=== PATIENT | female | born 1995 | race Asian ===

== ENCOUNTER 2018-01-15 21:53 | Emergency (ER) | payer BC ==
[2018-01-16] MEDS: MORPHINE 2 MG/ML 1ML SYRINGE (J2270) IV ×2 (00:19→06:04)
[2018-01-16] MEDS: NS 1,000 ML IV (00:19)
[2018-01-16] MEDS: ONDANSETRON 4MG/2ML VIAL (J2405) IV ×2 (00:19→05:07)
[2018-01-16 00:24] LABS: BASO # 0.1 10^3/uL (0.0-0.2); BASO % 1.1 % (0.0-1.0); EOS # 2.7 10^3/uL (0.0-0.50); HEMATOCRIT 39.8 % (36.0-47.0); HEMOGLOBIN 13.2 g/dl (12.0-15.5); IMMATURE GRANULOCYTE % 0.2 % (0-3.0); LYMPH # 3.4 10^3/uL (1.5-6.5); LYMPH % 31.8 % (24.0-44.0); MEAN CORPUSCULAR HGB CONC 33.2 g/dl (32.0-36.5); MEAN CORPUSCULAR VOLUME 90.5 fl (80.0-96.0); MONO # 0.7 10^3/uL (0.0-0.8); MONO % 6.1 % (0.0-5.0); NEUTROPHILS # 3.8 10^3/uL (1.8-7.7); NEUTROPHILS % 35.7 % (36.0-66.0); PLATELET COUNT, AUTOMATED 258 10^3/uL (150-450); RED CELL DISTRIBUTION WIDTH 13.9 % (11.5-14.5); WHITE BLOOD COUNT 10.6 10^3/uL (4.0-10.0)
[2018-01-16 00:27] LABS: EOS % 25.1 % (0.0-3.0); POSITIVE DIFF POS FLAG
[2018-01-16 00:39] LABS: KETONE, URINE AUTO RFX NEGATIVE (NEGATIVE); LEUKOCYTE ESTERASE UR AUTO RFX NEGATIVE (NEGATIVE); NITRITE, URINE AUTO RFX NEGATIVE (NEGATIVE); RBC, URINE AUTO RFX 0 /HPF (0-3); SPECIFIC GRAVITY UR AUTO RFX 1.006 (1.002-1.035); SQUAM EPITHELIAL CELL UR AURFX 0 /HPF (0-6); WBC, URINE AUTO RFX 0 /HPF (0-3)
[2018-01-16] MEDS ORDERED: ISOVUE-370 76% 100ML VIAL (Q9967) As Ordered (01:42)
[2018-01-16 02:38] LABS: ALBUMIN 4.1 GM/DL (3.2-5.2); ALBUMIN/GLOBULIN RATIO 1.17 (1.00-1.93); ALKALINE PHOSPHATASE 51 U/L (45-117); ALT/SGPT 17 U/L (12-78); ANION GAP 3 MEQ/L (8-16); AST/SGOT 10 U/L (7-37); BILIRUBIN,DIRECT < 0.1 MG/DL (0.0-0.2); BILIRUBIN,TOTAL 0.3 MG/DL (0.2-1.0); BLOOD UREA NITROGEN 12 MG/DL (7-18); CARBON DIOXIDE LEVEL 30 MEQ/L (21-32); CHLORIDE LEVEL 107 MEQ/L (98-107); CREATININE FOR GFR 0.69 MG/DL (0.55-1.30); GLOMERULAR FILTRATION RATE > 60.0 (>60); GLUCOSE, FASTING 90 MG/DL (70-100); LIPASE 168 U/L (73-393); POTASSIUM SERUM 3.8 MEQ/L (3.5-5.1); SODIUM LEVEL 140 MEQ/L (136-145); TOTAL PROTEIN 7.6 GM/DL (6.4-8.2)
[2018-01-16 03:17] LABS: CONTROL LINE HCG INT CTR LINE PRESENT; HCG, SERUM QUALITATIVE NEGATIVE (NEGATIVE)
[2018-01-16] MEDS: OXYCODONE/APAP 5MG/325MG(BULK FOR ED) 1 TABLET PO (06:59)
== END 2018-01-16 07:11 | disposition home or self-care (01) ==
LOC: M ED 21:53
DX: N83.01 Follicular cyst of right ovary (principal); Z98.890 Other specified postprocedural states
CPT/HCPCS: J2405

== ENCOUNTER 2018-02-21 11:23 | Emergency (ER) | payer BC ==
[2018-02-21] MEDS: NS 1,000 ML IV (12:45)
[2018-02-21] MEDS: diphenhydrAMINE INJ 50MG/ML VIAL (J1200) IV (12:45)
[2018-02-21] MEDS: methylPREDNISolone INJ 125 MG/2 ML VIAL (J2930) IV (12:46)
[2018-02-21] MEDS: FAMOTIDINE INJ 20MG/2ML VIAL (S0028) IV (12:46)
== END 2018-02-21 14:20 | disposition home or self-care (01) ==
LOC: M ED 11:23
DX: L50.0 Allergic urticaria (principal); T36.95XA Adverse effect of unspecified systemic antibiotic, initial encounter; X58.XXXA Exposure to other specified factors, initial encounter; Y92.89 Other specified places as the place of occurrence of the external cause
CPT/HCPCS: J1200

== ENCOUNTER 2018-08-08 19:03 | Emergency (ER) | payer BC, OTHER ==
[~2018-08-08] VITALS: Ht 157.5 cm; Wt 65.9 kg
[~2018-08-08 19:03] MED LIST: AZIT500T2 PO; CEFD1CAP8 PO; DIPH50TA3 PO; FAMO40TA3 PO; PRED20TA; PRED20TA PO; ZOFR4TAB14 PO
[2018-08-08 19:32] LABS: BASO % 0.3 % (0.0-1.0); EOS # 0.3 10^3/uL (0.0-0.50); EOS % 3.9 % (0.0-3.0); HEMATOCRIT 42.2 % (36.0-47.0); HEMOGLOBIN 14.2 g/dl (12.0-15.5); LYMPH # 1.8 10^3/uL (1.5-6.5); LYMPH % 25.7 % (24.0-44.0); MEAN CORPUSCULAR HEMOGLOBIN 30.9 pg (27.0-33.0); MEAN CORPUSCULAR HGB CONC 33.6 g/dl (32.0-36.5); MEAN CORPUSCULAR VOLUME 91.7 fl (80.0-96.0); MONO # 0.5 10^3/uL (0.0-0.8); MONO % 7.6 % (0.0-5.0); NEUTROPHILS # 4.4 10^3/uL (1.8-7.7); NEUTROPHILS % 62.4 % (36.0-66.0); PLATELET COUNT, AUTOMATED 274 10^3/uL (150-450); WHITE BLOOD COUNT 7.1 10^3/uL (4.0-10.0)
[2018-08-08 20:28] LABS: BLOOD UREA NITROGEN 9 MG/DL (7-18); CALCIUM LEVEL 9.3 MG/DL (8.5-10.1); CARBON DIOXIDE LEVEL 30 MEQ/L (21-32); CHLORIDE LEVEL 102 MEQ/L (98-107); GLOMERULAR FILTRATION RATE > 60.0 (>60); GLUCOSE, FASTING 113 MG/DL (70-100); HCG, SERUM QUANTITATIVE 1022 MIU/ML; POTASSIUM SERUM 3.7 MEQ/L (3.5-5.1); SODIUM LEVEL 136 MEQ/L (136-145)
--- NOTE | 2018-08-08 20:43 | REPVR ---
EXAM: US First Trimester, Transabdominal and US , Transvaginal EXAM DATE/TIME: 08/08/2018 7:50 PM CLINICAL HISTORY: 22 years old, female; Pain; complicated by abdominal or pelvic pain; Upper; First trimester; Gestational age or lmp: 06/17/18; ; Additional info: Pain/cramping TECHNIQUE: Real-time transabdominal obstetrical ultrasound of the maternal pelvis and a first trimester , less than 14 weeks 0 days, with image documentation. Transvaginal imaging was used for better evaluation of the fetus and adnexa. COMPARISON: No relevant prior studies available. FINDINGS: GESTATION: Gestation: There is an intrauterine gestational sac. No evidence of yolk sac or pole . There is a tiny collection of echoes noted within the sac Placenta: Unremarkable. No subchorionic bleed. Abdomen: Transabdominally, the bladder is incompletely distended. This limits visualization of the pelvic structures. BIOMETRY: Mean sac diameter: The sac measures 0.4 x 0.3 x 0.26 cm for a mean sac diameter of 0.34 cm for a menstrual age of 5 weeks and 0 days. MATERNAL: Uterus: Transabdominally, the uterus measures at least 8 x 3.1 x 5.9 cm.. The endometrium stripe measures 9 mm. Endovaginally, the uterus measures 9 x 3.8 x 6.4 cm. Findings suggest bicornuate or arcuate uterus. Cervix: Unremarkable. Right adnexa: Transabdominally, the right ovary is not seen as a separate structure. Endovaginally, the right ovary measures 3.1 x 1.8 x 3.1 cm. A cyst with a few internal echoes noted in the right ovary measures 1.8 cm in greatest diameter. Blood flow is seen in the right ovary on color Doppler and pulsed Doppler examination. Left adnexa: Transabdominally, the left ovary is not seen as separate structure. Endovaginally, the left ovary is not seen as a separate structure. Intraperitoneal: Endovaginally, smaller free fluid seen in the posterior cul-de-sac. IMPRESSION: 1. Single intrauterine gestational sac. No pole or yolk sac seen. Serial beta hCG measurement and followup ultrasound might be considered to confirm the presence of a live . 2. Nonvisualization of the left ovary. No masses in the left adnexa. 3. Bicornuate or arcuate uterus. Electronically signed by: Dolly Morris On 08/08/2018 20:43:08 PM
[2018-08-08 21:20] VITALS: BP 135/84
== END 2018-08-08 21:31 | disposition home or self-care (01) ==
LOC: M ED 19:03
DX: O34.591 Maternal care for other abnormalities of gravid uterus, first trimester (principal); O26.891 Other specified pregnancy related conditions, first trimester; Z79.899 Other long term (current) drug therapy; Z88.1 Allergy status to other antibiotic agents

== ENCOUNTER → 2018-08-12 | Outpatient (CLI) | payer OTHER ==
[~2018-08-12] MED LIST changes: +PRENTAB45 PO
== END ==
LOC: M WUC 10:34
PROVIDERS: ATTEND Physician Assistant
DX: O26.891 Other specified pregnancy related conditions, first trimester (principal)

== ENCOUNTER 2018-08-21 09:39 | Day surgery (SDC) | payer OTHER ==
[~2018-08-21] VITALS: Ht 157.5 cm; Wt 67.2 kg
[~2018-08-21 09:39] MED LIST changes: -PRENTAB45 PO
[2018-08-21] MEDS ORDERED: PRENTAB45 PO (10:37)
[2018-08-21] MEDS ORDERED: LIDOCAINE 1% MDV 20ML VIAL As Ordered ONE (10:47)
[2018-08-21] MEDS ORDERED: DOXYCYCLINE HYCLATE 100 MG TAB As Ordered ONE (11:05)
[2018-08-21] MEDS ORDERED: ONDANSETRON 4MG/2ML VIAL (J2405) As Ordered ONE ×2 (11:22→12:42)
[2018-08-21] MEDS ORDERED: PROPOFOL 200 MG/20 ML VIAL As Ordered ONE (11:22)
[2018-08-21] MEDS ORDERED: KETOROLAC 60 MG/2 ML VIAL (J1885) As Ordered ONE (11:22)
[2018-08-21] MEDS ORDERED: fentaNYL 100 MCG/2 ML INJECTION (J3010) As Ordered ONE (11:22)
[2018-08-21] MEDS ORDERED: MIDAZOLAM INJ 2 MG/2 ML VIAL (J2250) As Ordered ONE (11:22)
[2018-08-21] MEDS ORDERED: LIDOCAINE 2% INJ 100 MG/5 ML SDV (FOR ANES.) As Ordered ONE (11:22)
[2018-08-21] MEDS ORDERED: SILVER NITRATE APPLICATOR As Ordered ONE (11:40)
[2018-08-21] MEDS ORDERED: DOXYCYCLINE HYCLATE 100 MG TAB PO ONE (12:00)
[2018-08-21] MEDS ORDERED: MORPHINE 4 MG/ML 1ML VIAL/SYRINGE (J2270) As Ordered ONE (12:27)
[2018-08-21] MEDS ORDERED: LR 1,000 ML IV SCH (12:45)
[2018-08-21] MEDS ORDERED: PERCOCET 5MG/325MG TAB PO PRN (12:45)
[2018-08-21] MEDS ORDERED: MORPHINE 10 MG/ML 1ML VIAL (J2270) IV ONE (12:45)
[2018-08-21] MEDS: ONDANSETRON 4MG/2ML VIAL (J2405) IV PRN (13:00)
[2018-08-21] MEDS ORDERED: ONDANSETRON 4MG/2ML VIAL (J2405) IV ONE (13:30)
[2018-08-21] MEDS ORDERED: MORPHINE 2 MG/ML 1ML SYRINGE (J2270) IV ONE (13:30)
[2018-08-21] MEDS ORDERED: IBUPROFEN 800 MG TAB As Ordered ONE (13:52)
[2018-08-21 14:30] VITALS: BP 121/73
[2018-08-21] MEDS ORDERED: IBUPROFEN 800 MG TAB PO ONE (15:00)
--- NOTE | 2018-08-22 13:14 | RO ---
DATE OF PROCEDURE: 08/21/2018 SURGEON: Raf La MD NUTRITION SERVICES AIDE: PREOPERATIVE DIAGNOSIS: Missed . POSTOPERATIVE DIAGNOSIS: Missed . ANESTHESIA: Monitored anesthesia care (MAC) with local paracervical block. ESTIMATED BLOOD LOSS: 50 mL. FLUIDS: 600 mL of lactated Ringer. PROCEDURE: Dilation and curettage. PREOPERATIVE ANTIBIOTICS: Doxycycline along with one dose of postoperative antibiotics 100 mg. SPECIMENS: Products of conception. FINDINGS: Axial [id number] uterus. INDICATIONS: The patient had quantitative hormone levels that were not compatible with normal and two scans that confirmed a missed (AB) done by Dr. Nur in the clinic. DESCRIPTION OF OPERATION: The patient was taken to the operating room with an IV in place, and MAC anesthesia was obtained. She was placed in the dorsal lithotomy position by me, and exam was performed. She was then prepped and draped in normal sterile fashion. Speculum was placed into the vagina, and the cervix was isolated. The anterior lip of the cervix was grasped with a tenaculum, and she was sequentially dilated enough to admit a 9-mm curved suction curette. This was placed to the fundus, attached to the suction device; and once green suction status was obtained with the suction device, gentle in-and-out and twisting maneuvers were used with the suction curette to remove the products of conception. This was repeated times three. She was then sharply curetted in the intrauterine cavity until a gritty texture was noted throughout in all four quadrants. Suction curette was replaced one more time, and no significant tissue or blood was noted at this point. Hemostasis was noted from the cervical os. A small amount of bleeding was noted from the tenaculum site at the anterior lip. Silver nitrate was used to obtain hemostasis. All in all, the procedure was uncomplicated and straightforward. All counts were correct. MTDD
== END 2018-08-21 14:45 | disposition home or self-care (01) ==
LOC: M SDC 09:39
PROVIDERS: ATTEND Obstetrics & Gynecology
DX: O02.1 Missed abortion (principal)
CPT/HCPCS: 59820; 88305; J1885; J2250; J2270; J2405; J3010

== ENCOUNTER 2018-10-03 09:34 | Emergency (ER) | payer OTHER ==
[~2018-10-03] VITALS: Ht 157.5 cm; Wt 65.9 kg
[~2018-10-03 09:34] MED LIST changes: +PRENTAB45 PO
[2018-10-03 10:14] LABS: BASO % 0.6 % (0.0-1.0); EOS # 0.2 10^3/uL (0.0-0.50); EOS % 3.5 % (0.0-3.0); LYMPH % 31.2 % (24.0-44.0); MEAN CORPUSCULAR HEMOGLOBIN 31.4 pg (27.0-33.0); MEAN CORPUSCULAR HGB CONC 34.1 g/dl (32.0-36.5); MEAN CORPUSCULAR VOLUME 92.1 fl (80.0-96.0); MONO # 0.3 10^3/uL (0.0-0.8); MONO % 5.4 % (0.0-5.0); NEUTROPHILS # 3.8 10^3/uL (1.8-7.7); PLATELET COUNT, AUTOMATED 256 10^3/uL (150-450); RED BLOOD COUNT 4.78 10^6/uL (4.00-5.40); WHITE BLOOD COUNT 6.4 10^3/uL (4.0-10.0)
[2018-10-03 10:36] LABS: ERYTHROCYTE SEDIMENTATION RATE 2 mm/hr (0-20)
--- NOTE | 2018-10-03 10:45 | REP ---
Clinical: Abdominopelvic pain with recent dilatation and curettage. Technique: Transabdominal pelvic ultrasound followed by transvaginal examination for better evaluation of the endometrium and adnexa with color Doppler evaluation of the ovaries. Findings: Bladder is unremarkable and measures 7.5 x 5.5 x 5.4 cm . Normal anteverted uterus measures 8.7 x 4.2 x 5.6 cm . The endometrial complex measures 7.9 mm thickness. No discrete uterine or endometrial abnormalities are appreciated. Bilateral ovaries are normal in appearance and vascularity without evidence for torsion. Right ovary measures 4.5 x 2.4 x 2.7 cm with 2.0 cm dominant follicle ; R I = 0.47 . Left ovary measures 2.6 x 1.3 x 1.8 cm ; R I = 0.45 . Trace free fluid noted in the cul-de-sac. No adnexal mass lesion identified. . Impression: 1. 2 cm dominant follicle in the right ovary. 2. Small amount of free fluid in the posterior cul-de-sac likely physiologic. 3. Otherwise normal pelvic ultrasound. Electronically Signed by Dedrick Campos MD 10/03/2018 10:36 A
[2018-10-03 10:47] LABS: BLOOD UREA NITROGEN 14 MG/DL (7-18); C REACTIVE PROTEIN QUANTITATIV < 0.30 MG/DL (0.00-0.30); CALCIUM LEVEL 8.8 MG/DL (8.5-10.1); CARBON DIOXIDE LEVEL 27 MEQ/L (21-32); CHLORIDE LEVEL 105 MEQ/L (98-107); CREATININE FOR GFR 0.65 MG/DL (0.55-1.30); GLOMERULAR FILTRATION RATE > 60.0 (>60); GLUCOSE, FASTING 100 MG/DL (70-100); HCG, SERUM QUANTITATIVE < 1.0 MIU/ML; SODIUM LEVEL 140 MEQ/L (136-145)
[2018-10-03] MEDS ORDERED: NS 1,000 ML IV ONE (11:15)
[2018-10-03] MEDS ORDERED: ACETAMINOPHEN TAB 650MG DOSE (2X325MG) PO ONE (12:15)
[2018-10-03 13:05] VITALS: BP 113/65
== END 2018-10-03 13:07 | disposition home or self-care (01) ==
LOC: M ED 09:34
DX: R10.2 Pelvic and perineal pain (principal); N83.01 Follicular cyst of right ovary; Z87.59 Personal history of other complications of pregnancy, childbirth and the puerperium; Z98.890 Other specified postprocedural states; Z88.1 Allergy status to other antibiotic agents

== ENCOUNTER → 2018-11-04 | Outpatient (CLI) | payer OTHER ==
--- NOTE | 2018-11-04 17:24 | REP ---
Clinical: Acute cough . Comparison: None . Technique: PA and lateral. Findings: The mediastinum and cardiac silhouette are normal. The lung walsh are clear and without acute consolidation, effusion, or pneumothorax. The skeletal structures are intact and normal. Impression: 1. No acute cardiopulmonary process. Electronically Signed by Dedrick Campos MD 11/04/2018 05:15 P
== END ==
LOC: M WUC 17:06
PROVIDERS: ATTEND Physician Assistant
DX: R05 Cough (principal)

== ENCOUNTER 2018-12-01 20:23 | Emergency (ER) | payer OTHER ==
[~2018-12-01] VITALS: Ht 157.5 cm; Wt 68.2 kg
[2018-12-01] MEDS ORDERED: ONDANSETRON 4 MG TAB (S0181) PO ONE (21:45)
[2018-12-01] MEDS ORDERED: MECLIZINE 25 MG TABLET PO ONE (21:45)
[2018-12-01 22:08] LABS: INFLUENZA A AMPLIFICATION NEGATIVE (NEGATIVE); INFLUENZA B AMPLIFICATION NEGATIVE (NEGATIVE)
--- NOTE | 2018-12-01 22:57 | REPVR ---
EXAM: CT Head Without Contrast EXAM DATE/TIME: 12/01/2018 10:20 PM CLINICAL HISTORY: 23 years old, female; Pain; Additional info: Dizziness one month TECHNIQUE: Imaging protocol: Axial computed tomography images of the head/brain without contrast. Radiation optimization: All CT scans at this facility use at least one of these dose optimization techniques: automated exposure control; mA and/or kV adjustment per patient size (includes targeted exams where dose is matched to clinical indication); or iterative reconstruction. COMPARISON: No relevant prior studies available. FINDINGS: Brain: Unremarkable. No hemorrhage. No significant white matter disease. No edema. Ventricles: Unremarkable. No ventriculomegaly. Bones/joints: Unremarkable. No acute fracture. Sinuses: Mild mucosal thickening of ethmoid sinuses. Mastoid air cells: Visualized mastoid air cells are unremarkable. No mastoid effusion. Soft tissues: Unremarkable. IMPRESSION: No intracranial abnormality. Electronically signed by: Eric Genao On 12/01/2018 22:56:42 PM
[2018-12-01] MEDS ORDERED: ZOFR8TAB24 PO (23:37)
[2018-12-01] MEDS ORDERED: MECL-68 PO (23:37)
[2018-12-01] MEDS ORDERED: ACETAMINOPHEN TAB 650MG DOSE (2X325MG) PO ONE (23:45)
[2018-12-01 23:48] VITALS: BP 117/63
== END 2018-12-01 23:49 | disposition home or self-care (01) ==
LOC: M ED 20:23
DX: H81.10 Benign paroxysmal vertigo, unspecified ear (principal); Z88.1 Allergy status to other antibiotic agents

== ENCOUNTER → 2018-12-09 | Outpatient (CLI) | payer OTHER ==
[~2018-12-09] MED LIST changes: +MECL-68 PO; +ZOFR8TAB24 PO
[2018-12-09 19:41] LABS: HCG, SERUM QUALITATIVE NEGATIVE (NEGATIVE)
== END ==
LOC: M WUC 15:33
PROVIDERS: ATTEND Physician Assistant
DX: N91.2 Amenorrhea, unspecified (principal)

== ENCOUNTER → 2019-01-16 | Outpatient (REF) | payer OTHER | LOC: M LAB REF 16:54 | PROVIDERS: ATTEND Physician Assistant | DX: N39.0 Urinary tract infection, site not specified (principal); N91.2 Amenorrhea, unspecified ==

== ENCOUNTER 2019-01-23 23:44 | Emergency (ER) | payer OTHER ==
[~2019-01-23] VITALS: Ht 157.5 cm; Wt 68.2 kg
[2019-01-23] MEDS ORDERED: METF500T13 PO (23:49)
[2019-01-24 00:34] LABS: BASO % 0.4 % (0.0-1.0); EOS # 0.6 10^3/uL (0.0-0.50); EOS % 5.7 % (0.0-3.0); HEMATOCRIT 41.1 % (36.0-47.0); HEMOGLOBIN 14.2 g/dl (12.0-15.5); LYMPH # 3.7 10^3/uL (1.5-6.5); LYMPH % 38.1 % (24.0-44.0); MEAN CORPUSCULAR HEMOGLOBIN 32.2 pg (27.0-33.0); MEAN CORPUSCULAR HGB CONC 34.5 g/dl (32.0-36.5); MEAN CORPUSCULAR VOLUME 93.2 fl (80.0-96.0); MONO # 0.5 10^3/uL (0.0-0.8); MONO % 5.5 % (0.0-5.0); NEUTROPHILS # 4.9 10^3/uL (1.8-7.7); PLATELET COUNT, AUTOMATED 279 10^3/uL (150-450); RED BLOOD COUNT 4.41 10^6/uL (4.00-5.40); WHITE BLOOD COUNT 9.8 10^3/uL (4.0-10.0)
[2019-01-24 01:31] VITALS: BP 134/80
== END 2019-01-24 01:34 | disposition home or self-care (01) ==
LOC: M ED 23:44
DX: R10.2 Pelvic and perineal pain (principal); R35.8 Other polyuria; R39.15 Urgency of urination; Z79.84 Long term (current) use of oral hypoglycemic drugs; Z88.1 Allergy status to other antibiotic agents

== ENCOUNTER 2019-03-13 20:37 | Emergency (ER) | payer OTHER ==
[~2019-03-13] VITALS: Ht 157.5 cm; Wt 70.0 kg
[~2019-03-13 20:37] MED LIST changes: -AZIT500T2 PO; +AZIT500T5 PO; -MECL-68 PO; +MECL1TAB31 PO; +METF500T13 PO
[2019-03-13 21:42] LABS: BASO % 0.3 % (0.0-1.0); EOS # 0.5 10^3/uL (0.0-0.50); EOS % 4.7 % (0.0-3.0); HEMATOCRIT 40.4 % (36.0-47.0); HEMOGLOBIN 13.8 g/dl (12.0-15.5); LYMPH % 30.3 % (24.0-44.0); MEAN CORPUSCULAR HEMOGLOBIN 31.2 pg (27.0-33.0); MEAN CORPUSCULAR HGB CONC 34.2 g/dl (32.0-36.5); MEAN CORPUSCULAR VOLUME 91.4 fl (80.0-96.0); MONO # 0.6 10^3/uL (0.0-0.8); NEUTROPHILS # 5.8 10^3/uL (1.8-7.7); NEUTROPHILS % 58.4 % (36.0-66.0); PLATELET COUNT, AUTOMATED 289 10^3/uL (150-450); RED BLOOD COUNT 4.42 10^6/uL (4.00-5.40)
[2019-03-13 22:07] LABS: ALT/SGPT 20 U/L (12-78); BILIRUBIN,TOTAL 0.2 MG/DL (0.2-1.0); BLOOD UREA NITROGEN 5 MG/DL (7-18); CALCIUM LEVEL 9.7 MG/DL (8.5-10.1); CARBON DIOXIDE LEVEL 28 MEQ/L (21-32); CHLORIDE LEVEL 104 MEQ/L (98-107); CREATININE FOR GFR 0.58 MG/DL (0.55-1.30); GLOMERULAR FILTRATION RATE > 60.0 (>60); GLUCOSE, FASTING 93 MG/DL (70-100); POTASSIUM SERUM 3.9 MEQ/L (3.5-5.1); SODIUM LEVEL 139 MEQ/L (136-145); TOTAL PROTEIN 7.6 GM/DL (6.4-8.2)
[2019-03-13 22:11] LABS: HCG, SERUM QUALITATIVE POSITIVE (NEGATIVE)
[2019-03-13 22:48] LABS: APPEARANCE, URINE CLEAR (CLEAR); BACTERIA, URINE AUTO NEGATIVE (NEGATIVE); BILIRUBIN, URINE AUTO NEGATIVE (NEGATIVE); BLOOD, URINE BLOOD NEGATIVE (NEGATIVE); COLOR, URINE STRAW (YELLOW); GLUCOSE, URINE (UA) AUTO NEGATIVE (NEGATIVE); KETONE, URINE AUTO TRACE mg/dL (NEGATIVE); LEUKOCYTE ESTERASE, URINE AUTO NEGATIVE (NEGATIVE); NITRITE, URINE AUTO NEGATIVE (NEGATIVE); PROTEIN, URINE AUTO NEGATIVE (NEGATIVE); RBC, URINE AUTO 1 /HPF (0-3); SPECIFIC GRAVITY URINE AUTO 1.006 (1.002-1.035); SQUAMOUS EPITHELIAL CELL UR AU 0 /HPF (0-6); UROBILINOGEN, URINE AUTO 0.2 mg/dL (0.0-2.0); WBC, URINE AUTO 0 /HPF (0-3)
[2019-03-13 23:07] LABS: HCG, SERUM QUANTITATIVE 118579 MIU/ML
[2019-03-14] MEDS ORDERED: METOCLOPRAMIDE INJ 10MG/2ML VIAL (J2765) IV ONE (00:15)
[2019-03-14] MEDS ORDERED: NS 1,000 ML IV ONE (00:15)
[2019-03-14] MEDS ORDERED: REGL10TA6 PO (01:56)
[2019-03-14 02:07] VITALS: BP 107/60
== END 2019-03-14 02:20 | disposition home or self-care (01) ==
LOC: M ED 20:37
DX: O21.9 Vomiting of pregnancy, unspecified (principal); R19.7 Diarrhea, unspecified; Z3A.10 10 weeks gestation of pregnancy; Z88.1 Allergy status to other antibiotic agents; Z79.84 Long term (current) use of oral hypoglycemic drugs
CPT/HCPCS: 80053; 81001; 84702; 84703; 85025; 96361; 96374; 99284; J2765

== ENCOUNTER 2019-05-05 12:21 | Emergency (ER) | payer OTHER ==
[~2019-05-05] VITALS: Ht 157.5 cm; Wt 71.3 kg
[~2019-05-05 12:21] MED LIST changes: +AZIT500T2 PO; -AZIT500T5 PO; +MECL-68 PO; -MECL1TAB31 PO; +REGL10TA6 PO
[2019-05-05] MEDS ORDERED: ZOLO25TA PO (12:30)
[2019-05-05 13:17] LABS: BASO % 0.3 % (0.0-1.0); EOS # 0.3 10^3/uL (0.0-0.5); EOS % 3.8 % (0.0-3.0); HEMATOCRIT 37.2 % (36.0-47.0); HEMOGLOBIN 12.7 g/dl (12.0-15.5); LYMPH # 1.5 10^3/uL (1.5-5.0); LYMPH % 19.9 % (24.0-44.0); MEAN CORPUSCULAR HEMOGLOBIN 32.7 pg (27.0-33.0); MEAN CORPUSCULAR HGB CONC 34.1 g/dl (32.0-36.5); MEAN CORPUSCULAR VOLUME 95.9 fl (80.0-96.0); MONO # 0.4 10^3/uL (0.0-0.8); MONO % 5.4 % (0.0-5.0); NEUTROPHILS # 5.3 10^3/uL (1.5-8.5); NEUTROPHILS % 70.1 % (36.0-66.0); PLATELET COUNT, AUTOMATED 259 10^3/uL (150-450); RED BLOOD COUNT 3.88 10^6/uL (4.00-5.40); WHITE BLOOD COUNT 7.6 10^3/uL (4.0-10.0)
[2019-05-05 14:06] LABS: BLOOD UREA NITROGEN 7 MG/DL (7-18); CALCIUM LEVEL 8.9 MG/DL (8.5-10.1); CARBON DIOXIDE LEVEL 26 MEQ/L (21-32); CHLORIDE LEVEL 106 MEQ/L (98-107); CREATININE FOR GFR 0.52 MG/DL (0.55-1.30); GLOMERULAR FILTRATION RATE > 60.0 (>60); GLUCOSE, FASTING 101 MG/DL (70-100); HCG, SERUM QUANTITATIVE 42506 MIU/ML; POTASSIUM SERUM 3.9 MEQ/L (3.5-5.1); SODIUM LEVEL 140 MEQ/L (136-145)
[2019-05-05 16:01] VITALS: BP 124/72
--- NOTE | 2019-05-05 17:37 | REP ---
Limited obstetric sonography: History: Vaginal bleeding. 18 weeks gestation. Findings: Transabdominal scanning is performed. A living cephalic intrauterine fetus is seen. heart rate is recorded at 162 beats per minute. A posterior placenta is seen without evidence of previa. Amniotic fluid appears subjectively normal. Amniotic fluid index is normal at 8.1 cm. SD ratio is 2.12. Closed cervical length is 3.7 cm viewed transabdominally. Impression: Limited OB sonography. No abnormality identified. FRANKLIN normal 8.1 cm. Electronically Signed by Alfredo Alegre MD 05/06/2019 09:33 A
== END 2019-05-05 16:16 | disposition home or self-care (01) ==
LOC: M ED 12:21
DX: O26.852 Spotting complicating pregnancy, second trimester (principal); Z3A.00 Weeks of gestation of pregnancy not specified; Z88.1 Allergy status to other antibiotic agents; Z79.899 Other long term (current) drug therapy

== ENCOUNTER 2019-06-13 13:09 | Outpatient (CLI) | payer OTHER ==
[~2019-06-13] VITALS: Ht 157.5 cm; Wt 75.8 kg
[~2019-06-13 13:09] MED LIST changes: -AZIT500T2 PO; +AZIT500T5 PO; +ZOLO25TA PO
[2019-06-13 13:36] VITALS: BP 114/67
[2019-06-13 14:19] VITALS: BP 118/75
--- NOTE | 2019-06-13 15:14 | IPNPDOC ---
Text Note Date of Service The patient was seen on 06/13/19. NOTE Patient is a 23 yo @ 23+wks gestation presents with concern for left side hip/abdominal pain that is worse when she moves. constant sharp pain. states that her hip hurts when she drives. denies vaginal discharge/vaginal bleeding. vitals: normal NAD abd: gravid, soft, nt fht: 140's toco: quiet speculum: white vaginal dicharge, no lesion, visually closed wetprep: neg clue cells/trich sal: neg hyphae/buds ua: neg for infection a/p patient is @23+wks gestation, normal exam. no e/o labor or infectious process. discussed normal symptoms. encourage using brace. will place outpatient PT consult for hip pain. VS,Fishbone, I+O VS, Fishbone, I+O Vital Signs Date Time Temp Pulse Resp B/P (MAP) Pulse Ox O2 Delivery O2 Flow Rate FiO2 06/13/19 14:19 78 18 118/75 (89) 06/13/19 13:36 97.8 BELINDA ORTEGA DO Jun 13, 2019 15:14
== END 2019-06-13 14:40 | disposition home or self-care (01) ==
LOC: M LDO 13:09
PROVIDERS: ATTEND Obstetrics & Gynecology
DX: O26.892 Other specified pregnancy related conditions, second trimester (principal); Z3A.23 23 weeks gestation of pregnancy
CPT/HCPCS: G0378; G0463

== ENCOUNTER 2019-06-30 16:11 | Outpatient (CLI) | payer OTHER ==
[~2019-06-30] VITALS: Ht 157.5 cm; Wt 77.7 kg
[2019-06-30 16:32] VITALS: BP 117/76
[2019-06-30] MEDS ORDERED: BETAMETHASONE SOLUSPAN 6MG/ML INJ 5ML (J0702) As Ordered ONE (18:08)
[2019-06-30] MEDS ORDERED: BETAMETHASONE SOLUSPAN 6MG/ML INJ 5ML (J0702) IM SCH (19:00)
[2019-06-30] MEDS ORDERED: LR 1,000 ML IV ONE (19:00)
--- NOTE | 2019-07-01 09:50 | HPE ---
DATE OF ADMISSION: 06/30/2019 This lady is being transferred to [facility]. She is a 23-year-old, 3, para 0, abortio 2, with last menstrual period (LMP) 12/15/2018, expected date of confinement (EDC) 10/04/2025, at 26 and 3 weeks of gestation with history of increasing vaginal discharge over the last week, clear in nature. No vaginal bleeding or discharge. She has back pain. However, she says she has chronic back pain because of spondylolisthesis at the L4 level. Her risk factors is that she has severe anxiety. She is presently on Zoloft and counseling. She has polycystic ovarian syndrome (PCOS). She was on metformin and stopped that when she was . She has insulin resistance or metabolic syndrome. She had failed a 1-hour GTT. She had a 3-hour GTT which was at the upper limit of normal. She monitored blood sugars for 2 weeks and then she stopped doing them. Her A1c at her 3-hour GTT was 5.0. PAST HISTORY: She is two spontaneous abortions, 5 and 7 weeks. LABS: A positive. HIV negative. Hepatitis negative. RPR negative. Rubella immune. Varicella immune. Pap was LGSIL. Urine was negative. Gonorrhea and chlamydia negative. 1-hour glucose was 182 early. Her 3-hour GTT fasting was 93, 1-hour 179, 2-hours 152 and 3-hours 135. Her A1c at that time was 5.0. She had a fingerstick while here in labor and delivery and it was 61. Blood pressure is 117/76, respirations are 18, pulse is 97, and temperature 98.4. Category one strip with no contractions or accelerations, moderate variability and baseline was normal. The baby is extremely active in the uterus. Speculum Examination: Sterile clean vagina. No bleeding. No discharge. Bulging membranes noted about 3 cm. The vertex presenting with hair. There is funneling associated with the dilatation. Initially cervix at 20 weeks was 3.7, it is presently about 2 cm or maybe less. We did a slide presentation. The BV was negative, yeast was negative and Nitrazine was negative. Our plan of management was to start an IV, put the patient in reverse Trendelenburg, steroids for enhancing lung maturity reviewed, mag sulfate for neuro prophylaxis, and arrange for transfer to [facility] with the accepting physician at [facility]. Reviewed the plan of care with the patient and the patient accepts the transfer. A nurse will be provided. Transportation has been called. All precautions were taken. The patient will be reevaluated 15 minutes before discharge to [facility]. We answered all questions, 40-minute discussion. The rest of the questions regarding viability, needs for the baby, will be discussed with the physicians at [facility].
== END 2019-06-30 18:30 | disposition short-term general hospital (02) ==
LOC: M LDO 16:11
PROVIDERS: ATTEND Obstetrics & Gynecology
DX: O34.62 Maternal care for abnormality of vagina, second trimester (principal); Z3A.26 26 weeks gestation of pregnancy
CPT/HCPCS: 59025; 76815; 96372; G0378; G0463; J0702

== ENCOUNTER 2019-07-17 17:16 | Outpatient (CLI) | payer OTHER ==
[~2019-07-17] VITALS: Ht 157.5 cm; Wt 78.6 kg
[2019-07-17] MEDS ORDERED: PRENTAB9 PO (17:30)
[2019-07-17 17:38] VITALS: BP 143/90
[2019-07-17 18:30] VITALS: BP 121/70
[2019-07-17 19:11] VITALS: BP 100/60
[2019-07-17 19:23] LABS: APPEARANCE, URINE CLEAR (CLEAR); BACTERIA, URINE AUTO 1+ (NEGATIVE); BILIRUBIN, URINE AUTO NEGATIVE (NEGATIVE); BLOOD, URINE BLOOD NEGATIVE (NEGATIVE); COLOR, URINE STRAW (YELLOW); GLUCOSE, URINE (UA) AUTO NEGATIVE (NEGATIVE); KETONE, URINE AUTO 1+ mg/dL (NEGATIVE); LEUKOCYTE ESTERASE, URINE AUTO NEGATIVE (NEGATIVE); MUCUS, URINE SMALL (NEGATIVE); NITRITE, URINE AUTO NEGATIVE (NEGATIVE); PROTEIN, URINE AUTO NEGATIVE (NEGATIVE); RBC, URINE AUTO 0 /HPF (0-3); SPECIFIC GRAVITY URINE AUTO 1.011 (1.002-1.035); SQUAMOUS EPITHELIAL CELL UR AU 0 /HPF (0-6); UROBILINOGEN, URINE AUTO 0.2 mg/dL (0.0-2.0); WBC, URINE AUTO 0 /HPF (0-3)
--- NOTE | 2019-07-17 19:52 | IPNPDOC ---
Text Note Date of Service The patient was seen on 07/17/19. NOTE S: Ms. Wisdom is a 23yo at 28+4wks who presents to LND triage with c/o multi-location pain since around 1300 today, worsening throughout the day. She describes the pain as sharp vaginal pain, lower back pain, and period like cramps. She denies recent intercourse (>72 hours); reports +FM, denies LOF/VB. She does report a change in her discharge, stating that it is now yellow after she completed a course of Flagyl. She also denies adequate hydration (drinking approximately 1-1.5L water/daily). Ms. Wisdom' is complicated now by A1GDM (recent diagnosis), Bicornuate uterus, Severe anxiety, PCOS, and overweight. She was also recently seen here and transferred to [place] for PTL (betamethasone complete); her cervix at transfer was 3cm and this did not change during her inpatient stay. O: VSS, initial BP elevated, repeat WNL FHR: 140s, moderate variability, + accels, no decels CTX: none SSE: yellow discharge present, coating vaginal pinedo; WP and FFN Collected SVE: 3cm/50/H (no cervical change), posterior, VTX presentation UA/UC collected A: Dehydration Reactive NST Not in labor (no cervical change) Negative Wet Prep FFN Positive (Reviewed with Dr. Santiago) UC Pending UA: + Ketones, 1+ bacteria, no WBCs or leukocytes P: Consulted with Dr. Santiago and pt determined to not be in labor and to be discharged home Reviewed strict PTL precautions and return YEIMY if symptoms change/worsen Reviewed importance of adequate hydration, 3-4L/day Reviewed normal discomforts of f/u scheduled for [id number] in clinic, but can f/u sooner PRN VS,Fishbone, I+O VS, Fishbone, I+O Vital Signs Date Time Temp Pulse Resp B/P (MAP) Pulse Ox O2 Delivery O2 Flow Rate FiO2 07/17/19 17:38 98.2 116 18 143/90 (107) Room [facility] YUE CEDENO CNM Jul 17, 2019 19:52
== END 2019-07-17 19:40 | disposition home or self-care (01) ==
LOC: M LDO 17:16
PROVIDERS: ATTEND Obstetrics & Gynecology
DX: O99.283 Endocrine, nutritional and metabolic diseases complicating pregnancy, third trimester (principal); E28.2 Polycystic ovarian syndrome; E86.0 Dehydration; O99.213 Obesity complicating pregnancy, third trimester; E66.3 Overweight; O24.419 Gestational diabetes mellitus in pregnancy, unspecified control; O34.593 Maternal care for other abnormalities of gravid uterus, third trimester; O34.03 Maternal care for unspecified congenital malformation of uterus, third trimester; Q51.3 Bicornate uterus; O99.343 Other mental disorders complicating pregnancy, third trimester; F41.9 Anxiety disorder, unspecified; Z3A.28 28 weeks gestation of pregnancy
CPT/HCPCS: 81001; 82731; 87086; 87210; G0378; G0463

== ENCOUNTER 2019-10-24 21:56 | Emergency (ER) | payer OTHER ==
[~2019-10-24] VITALS: Ht 157.5 cm; Wt 74.5 kg
[~2019-10-24 21:56] MED LIST changes: -MECL-68 PO; +MECL1TAB31 PO; +PRENTAB9 PO
[2019-10-24 22:43] LABS: BASO % 0.5 % (0.0-1.0); EOS # 0.3 10^3/uL (0.0-0.5); EOS % 4.2 % (0.0-3.0); HEMATOCRIT 45.1 % (36.0-47.0); HEMOGLOBIN 15.5 g/dl (12.0-15.5); LYMPH # 2.5 10^3/uL (1.5-5.0); LYMPH % 41.2 % (24.0-44.0); MEAN CORPUSCULAR HEMOGLOBIN 30.6 pg (27.0-33.0); MEAN CORPUSCULAR HGB CONC 34.4 g/dl (32.0-36.5); MEAN CORPUSCULAR VOLUME 89.1 fl (80.0-96.0); MONO # 0.4 10^3/uL (0.0-0.8); MONO % 6.2 % (0.0-5.0); NEUTROPHILS # 2.9 10^3/uL (1.5-8.5); NEUTROPHILS % 47.7 % (36.0-66.0); PLATELET COUNT, AUTOMATED 313 10^3/uL (150-450); RED BLOOD COUNT 5.06 10^6/uL (4.00-5.40); WHITE BLOOD COUNT 6.1 10^3/uL (4.0-10.0)
[2019-10-24 23:27] LABS: ALBUMIN 4.6 GM/DL (3.2-5.2); ALT/SGPT 41 U/L (12-78); BILIRUBIN,DIRECT < 0.1 MG/DL (0.0-0.2); BILIRUBIN,TOTAL 0.4 MG/DL (0.2-1.0); LIPASE 149 U/L (73-393); TOTAL PROTEIN 8.5 GM/DL (6.4-8.2)
--- NOTE | 2019-10-24 23:51 | REPVR ---
PROCEDURE INFORMATION: Exam: US Pelvis Complete, Transabdominal Exam date and time: 10/24/2019 11:46 PM Age: 23 years old Clinical indication: Pelvic pain; Prior surgery; Surgery date: 1-6 months; Additional info: Lower abd pain TECHNIQUE: Imaging protocol: Real-time transabdominal pelvic ultrasound with image documentation. Complete exam. COMPARISON: US PELVIC NON-OB COMPLETE 10/03/2018 10:09 AM FINDINGS: Uterus/cervix: The uterus measures 6.9 cm in its cephalocaudad dimension and 3.7 x 6.9 cm in its AP and lateral dimensions. The endometrium measures 4 mm. Right adnexa: The right ovary measures 2.3 x 2.9 x 1.9 cm and demonstrates normal blood flow. Left adnexa: The left ovary measures 1.7 x 3.1 x 1.7 cm and demonstrates normal blood flow. Free fluid: None. Bladder: Normal. IMPRESSION: Negative pelvic sonogram. Electronically signed by: Shadi Ken On 10/24/2019 23:50:33 PM
[2019-10-25 00:03] VITALS: BP 125/84
== END 2019-10-25 00:08 | disposition home or self-care (01) ==
LOC: M ED 21:56
DX: G89.18 Other acute postprocedural pain (principal); R10.2 Pelvic and perineal pain; E28.2 Polycystic ovarian syndrome; F41.9 Anxiety disorder, unspecified; F33.9 Major depressive disorder, recurrent, unspecified; Z88.1 Allergy status to other antibiotic agents; Z79.899 Other long term (current) drug therapy

== ENCOUNTER 2020-01-16 00:52 | Emergency (ER) | payer OTHER ==
[~2020-01-16] VITALS: Ht 157.5 cm; Wt 76.3 kg
[2020-01-16 00:53] VITALS: BP 127/84
[2020-01-16] MEDS ORDERED: CALC500T52 PO (01:00)
[2020-01-16] MEDS ORDERED: ONDANSETRON 4MG/2ML VIAL IV ONE (02:00)
[2020-01-16] MEDS ORDERED: NS 500 ML IV ONE (02:00)
[2020-01-16] MEDS ORDERED: LOPERAMIDE 2 MG CAPLET PO ONE (02:00)
[2020-01-16] MEDS ORDERED: ONDA4TAB6 PO (02:23)
== END 2020-01-16 02:42 | disposition home or self-care (01) ==
LOC: M ED 00:52
DX: K52.9 Noninfective gastroenteritis and colitis, unspecified (principal); Z88.8 Allergy status to other drugs, medicaments and biological substances
CPT/HCPCS: 80047; 84702; 87507; 96374; 99284; J2405

== ENCOUNTER 2020-01-17 22:05 | Emergency (ER) | payer OTHER, SELFPAY ==
[~2020-01-17] VITALS: Ht 157.5 cm; Wt 71.4 kg
[~2020-01-17 22:05] MED LIST changes: +CALC500T52 PO; +ONDA4TAB6 PO
[2020-01-17 23:08] LABS: EOS # 0.2 10^3/uL (0.0-0.5); EOS % 4.7 % (0.0-3.0); HEMATOCRIT 43.9 % (36.0-47.0); HEMOGLOBIN 14.3 g/dl (12.0-15.5); LYMPH # 1.9 10^3/uL (1.5-5.0); LYMPH % 38.5 % (24.0-44.0); MEAN CORPUSCULAR HEMOGLOBIN 30.3 pg (27.0-33.0); MEAN CORPUSCULAR HGB CONC 32.6 g/dl (32.0-36.5); MONO # 0.6 10^3/uL (0.0-0.8); MONO % 12.7 % (0.0-5.0); NEUTROPHILS # 2.1 10^3/uL (1.5-8.5); NEUTROPHILS % 43.9 % (36.0-66.0); PLATELET COUNT, AUTOMATED 293 10^3/uL (150-450); RED BLOOD COUNT 4.72 10^6/uL (4.00-5.40); WHITE BLOOD COUNT 4.9 10^3/uL (4.0-10.0)
[2020-01-17 23:31] LABS: ALBUMIN 3.9 GM/DL (3.2-5.2); BILIRUBIN,DIRECT 0.1 MG/DL (0.0-0.2); BILIRUBIN,TOTAL 0.5 MG/DL (0.2-1.0); TOTAL PROTEIN 7.6 GM/DL (6.4-8.2)
[2020-01-18] MEDS ORDERED: ISOVUE-370 76% 100ML VIAL As Ordered ONE (00:59)
--- NOTE | 2020-01-18 01:37 | REPVR ---
PROCEDURE INFORMATION: Exam: CT Abdomen And Pelvis With Contrast Exam date and time: 01/18/2020 1:24 AM Age: 24 years old Clinical indication: Abdominal pain; Generalized; Additional info: Abd pain/diarrhea TECHNIQUE: Imaging protocol: Computed tomography of the abdomen and pelvis with intravenous contrast. Radiation optimization: All CT scans at this facility use at least one of these dose optimization techniques: automated exposure control; mA and/or kV adjustment per patient size (includes targeted exams where dose is matched to clinical indication); or iterative reconstruction. Contrast material: ISOVUE 370; Contrast volume: 100 ml; Contrast route: IV; COMPARISON: CT ABD/PEL W/IV CONTRAST ONLY 01/16/2018 1:53 AM FINDINGS: Liver: Hepatomegaly and steatosis. Gallbladder and bile ducts: Normal. No calcified stones. No ductal dilation. Pancreas: Normal. No ductal dilation. Spleen: Normal. No splenomegaly. Adrenals: Normal. No mass. Kidneys and ureters: Normal. No hydronephrosis. Stomach and bowel: Mild nonspecific bowel wall thickening involving multiple small and large bowel loops. Fluid distends right colon. Appendix: No evidence of appendicitis. Intraperitoneal space: Unremarkable. No free air. No significant fluid collection. Vasculature: Unremarkable. No abdominal aortic aneurysm. Lymph nodes: Unremarkable. No enlarged lymph nodes. Bladder: Unremarkable as visualized. Reproductive: Unremarkable as visualized. Bones/joints: Mild anterolisthesis of L5 on S1 secondary to bilateral L5 pars interarticularis defects. Soft tissues: Small fat containing umbilical hernia. IMPRESSION: Mild nonspecific bowel wall thickening involving multiple small and large bowel loops. Fluid distends right colon. Enterocolitis is considered. Correlate clinically. Electronically signed by: Dilip Baxter On 01/18/2020 01:37:04 AM
[2020-01-18] MEDS ORDERED: AUGM875T28 PO (01:58)
[2020-01-18 02:03] VITALS: BP 121/83
== END 2020-01-18 02:08 | disposition home or self-care (01) ==
LOC: M ED 22:05
DX: K52.9 Noninfective gastroenteritis and colitis, unspecified (principal); Z88.8 Allergy status to other drugs, medicaments and biological substances
CPT/HCPCS: 36415; 74177; 80047; 80076; 81001; 83690; 84702; 85025; 87507; 99284; Q9967

== ENCOUNTER → 2020-07-12 | Outpatient (CLI) | payer SELFPAY ==
[~2020-07-12] MED LIST changes: +AUGM875T28 PO
== END ==
LOC: M LABSMTC 19:05
PROVIDERS: ATTEND Pediatrics
DX: Z20.828 Contact with and (suspected) exposure to other viral communicable diseases (principal)

== ENCOUNTER → 2020-07-26 | Outpatient (REF) | payer OTHER | LOC: M LAB REF 15:59 | PROVIDERS: ATTEND Physician Assistant Medical | DX: Z11.59 Encounter for screening for other viral diseases (principal) ==

== ENCOUNTER 2020-10-10 18:34 | Emergency (ER) | payer OTHER ==
[~2020-10-10] VITALS: Ht 160 cm; Wt 73.0 kg
[2020-10-10 18:35] VITALS: BP 146/95
== END 2020-10-10 19:50 | disposition home or self-care (01) ==
LOC: M ED 18:34
DX: Z32.01 Encounter for pregnancy test, result positive (principal); E28.2 Polycystic ovarian syndrome; Z88.1 Allergy status to other antibiotic agents

== ENCOUNTER 2020-11-09 12:08 | Emergency (ER) | payer OTHER ==
[~2020-11-09] VITALS: Ht 157.5 cm; Wt 71.0 kg
[2020-11-09 13:09] LABS: BASO % 0.4 % (0.0-1.0); EOS # 0.2 10^3/uL (0.0-0.5); EOS % 2.8 % (0.0-3.0); HEMATOCRIT 43.3 % (36.0-47.0); HEMOGLOBIN 14.7 g/dl (12.0-15.5); LYMPH # 2.1 10^3/uL (1.5-5.0); MEAN CORPUSCULAR HEMOGLOBIN 32.2 pg (27.0-33.0); MEAN CORPUSCULAR HGB CONC 33.9 g/dl (32.0-36.5); MEAN CORPUSCULAR VOLUME 94.7 fl (80.0-96.0); MONO # 0.4 10^3/uL (0.0-0.8); MONO % 4.7 % (2.0-8.0); NEUTROPHILS # 5.7 10^3/uL (1.5-8.5); NEUTROPHILS % 66.7 % (36.0-66.0); PLATELET COUNT, AUTOMATED 309 10^3/uL (150-450); RED BLOOD COUNT 4.57 10^6/uL (4.00-5.40); WHITE BLOOD COUNT 8.5 10^3/uL (4.0-10.0)
[2020-11-09 13:57] LABS: ALBUMIN 4.1 GM/DL (3.2-5.2); ALT/SGPT 15 U/L (12-78); BILIRUBIN,DIRECT 0.1 MG/DL (0.0-0.2); BILIRUBIN,TOTAL 0.3 MG/DL (0.2-1.0); BLOOD UREA NITROGEN 9 MG/DL (7-18); CALCIUM LEVEL 9.6 MG/DL (8.5-10.1); CARBON DIOXIDE LEVEL 27 MEQ/L (21-32); CHLORIDE LEVEL 103 MEQ/L (98-107); GLOMERULAR FILTRATION RATE > 60.0 (>60); GLUCOSE, FASTING 95 MG/DL (70-100); HCG, SERUM QUANTITATIVE 64393 MIU/ML; LIPASE 117 U/L (73-393); POTASSIUM SERUM 3.9 MEQ/L (3.5-5.1); SODIUM LEVEL 138 MEQ/L (136-145); TOTAL PROTEIN 7.8 GM/DL (6.4-8.2)
--- NOTE | 2020-11-09 15:19 | REP ---
INDICATION: left sided pelvic pain, cramping. COMPARISON: None. TECHNIQUE: Multiple ultrasonographic images of the pelvis including transabdominal, endovaginal and Doppler ultrasound. FINDINGS: There is an intrauterine gestational sac. There is no identifiable pole. On transverse images of the uterus the uterus appears to be a septate or bicornuate uterus. The gestational sac appears to be in the right cornu. However, there appears to be a subchorionic hematoma in the left cornu. The mean gestational sac diameter is 28.7 mm corresponding to 8 weeks 1 day gestational age. Neither the right nor the left ovary could be visualized on either transabdominal or endovaginal imaging at this time. No adnexal masses or cysts are identified at this time. IMPRESSION: Probable septated uterus with a gestational sac in the body of the uterus and in the right cornu. There is no identifiable pole a. A sub chorionic hematoma is suspected in the left cornu. The findings are nonspecific and could represent an intrauterine gestation too small to be identified by ultrasound at this time, spontaneous or ectopic gestation. Close follow-up is recommended. <Electronically signed by Raf Cortes > 11/09/20 [id number]
[2020-11-09 15:39] VITALS: BP 118/71
== END 2020-11-09 15:43 | disposition home or self-care (01) ==
LOC: M ED 12:08
DX: O34.591 Maternal care for other abnormalities of gravid uterus, first trimester (principal); Z3A.01 Less than 8 weeks gestation of pregnancy

== ENCOUNTER 2020-11-16 11:26 | Day surgery (SDC) | payer OTHER ==
[~2020-11-16] VITALS: Ht 157.5 cm; Wt 69.9 kg
[~2020-11-16 11:26] MED LIST changes: +DOXYCYCLINE HYCLATE 100MG TABLET PO ONE; +LIDOCAINE 1% MDV 20ML VIAL SQ PRN; +LR 1,000 ML IV ONE
[2020-11-16 12:05] LABS: HEMATOCRIT 40.8 % (36.0-47.0); HEMOGLOBIN 13.5 g/dl (12.0-15.5); MEAN CORPUSCULAR HEMOGLOBIN 31.1 pg (27.0-33.0); MEAN CORPUSCULAR HGB CONC 33.1 g/dl (32.0-36.5); PLATELET COUNT, AUTOMATED 279 10^3/uL (150-450); RED BLOOD COUNT 4.34 10^6/uL (4.00-5.40); WHITE BLOOD COUNT 7.1 10^3/uL (4.0-10.0)
[2020-11-16 12:26] LABS: HCG, SERUM QUALITATIVE POSITIVE (NEGATIVE)
[2020-11-16] MEDS ORDERED: DOXYCYCLINE HYCLATE 100MG TABLET PO ONE (13:40)
[2020-11-16] MEDS ORDERED: ONDANSETRON 4MG/2ML VIAL IV PRN ×2 (14:20→18:00)
[2020-11-16] MEDS ORDERED: LIDOCAINE 1% SDV 30ML VIAL As Ordered ONE (16:03)
[2020-11-16] MEDS ORDERED: SILVER NITRATE APPLICATOR As Ordered ONE (16:03)
[2020-11-16] MEDS ORDERED: MIDAZOLAM INJ 2MG/2ML VIAL (J2250 PER 1MG) As Ordered ONE (16:04)
[2020-11-16] MEDS ORDERED: LIDOCAINE 2% 100MG/5ML SDV (FOR ANES.) As Ordered ONE (16:04)
[2020-11-16] MEDS ORDERED: KETOROLAC 60MG 2ML VIAL As Ordered ONE (16:04)
[2020-11-16] MEDS ORDERED: fentaNYL 100 MCG/2 ML INJECTION (J3010) As Ordered ONE (16:04)
[2020-11-16] MEDS ORDERED: METOCLOPRAMIDE INJ 10MG/2ML VIAL (J2765 PER 1) As Ordered ONE (16:04)
[2020-11-16] MEDS ORDERED: ONDANSETRON 4MG/2ML VIAL As Ordered ONE (16:04)
[2020-11-16] MEDS ORDERED: propofoL 200 MG/20 ML VIAL As Ordered ONE ×2 (16:04→16:31)
[2020-11-16] MEDS ORDERED: LR 1,000 ML IV SCH (18:00)
[2020-11-16] MEDS ORDERED: oxyCODONE 5MG TAB PO PRN (18:00)
[2020-11-16] MEDS ORDERED: fentaNYL 100 MCG/2 ML INJECTION (J3010) IV PRN (18:00)
[2020-11-16 18:55] VITALS: BP 127/74
--- NOTE | 2020-11-17 09:05 | RO ---
OPERATIVE NOTE DATE OF OPERATION: 11/16/2020 PREOPERATIVE DIAGNOSIS: Missed /anembryonic gestation. POSTOPERATIVE DIAGNOSIS: Missed /anembryonic gestation. PROCEDURE: Suction dilation and curettage under ultrasound guidance. SURGEON: Lloyd Diaz DO BALLISTICS TESTER: Kim Granger DO for ultrasound guidance. IV FLUIDS: One liter lactated Ringer's (LR). URINE OUTPUT: 200 mL via straight catheter. ESTIMATED BLOOD LOSS: 10 mL. ANTIBIOTICS: Doxycycline 100 mg before the case and 200 mg after the case. COMPLICATIONS: None. OPERATIVE FINDINGS: Bicornuate uterus noted on ultrasound. Suction dilation and curettage done under ultrasound guidance to confirm removal of products of conception from appropriate uterine horn. DETAILED PROCEDURE DESCRIPTION: The risks, benefits, indications and alternatives of the procedure were reviewed with the patient and informed consent was obtained. The patient was taken to the operating room where IV sedation was obtained without difficulty. The patient was then placed in the lithotomy position using Edd stirrups. The patient was then prepped and draped in the usual sterile fashion and the bladder was drained using an in-and-out catheter. A surgical timeout was then performed and the patient's identify and planned procedure were verified with the operative team. A transvaginal ultrasound was performed which confirmed an empty gestational sac within the uterus with no yolk sac or pole, thus confirming the diagnosis of missed or anembryonic gestation. A sterile speculum was placed in the patient's vagina and the cervix was visualized. A paracervical block was then performed using approximately 10 mL of lidocaine without epinephrine. A single-toothed tenaculum was used to grasp the anterior lip of the cervix. The cervix was then gently serially dilated to a size 18-Urdu Ed dilator. Under ultrasound guidance, an 8-mm curved suction catheter was then introduced into the uterine cavity and gently advanced to the uterine fundus and to the appropriate horn, which was seen under ultrasound guidance. The suction device was then activated to 60 mmHg and the catheter was rotated to clear the uterus of the products of conception. Four more passes were performed with a moderate amount of tissue obtained. A gentle sharp curettage was then performed until a uterine cri was noted in all planes. Two more passes or the suction catheter were then performed and all tissue was removed. All tissue removed was sent to pathology for review. The single-toothed tenaculum was then removed from the anterior lip of the cervix. The tenaculum sites were noted to be hemostatic. All instruments were then removed from the patient's vagina. A bedside abdominal ultrasound was then performed which again confirmed no retained products of conception and complete removal of the . The patient tolerated the procedure well. A vaginal sweep was performed to confirm no retained foreign objects remained. At the completion of the case, sponge, instrument, and needle counts were correct times two. The patient tolerated the procedure well and was taken to PACU in stable condition. NEY
== END 2020-11-16 18:55 | disposition home or self-care (01) ==
LOC: M SDC 11:26
PROVIDERS: ATTEND Obstetrics & Gynecology
DX: O02.1 Missed abortion (principal); F41.9 Anxiety disorder, unspecified; F32.9 Major depressive disorder, single episode, unspecified; K21.9 Gastro-esophageal reflux disease without esophagitis; Z79.899 Other long term (current) drug therapy
CPT/HCPCS: 36415; 59820; 84703; 85027; 86850; 86900; 86901; 88305; J1885; J2250; J2405; J3010

== ENCOUNTER 2021-04-11 15:58 | Emergency (ER) | payer OTHER ==
[~2021-04-11] VITALS: Ht 157.5 cm; Wt 73.2 kg
[~2021-04-11 15:58] MED LIST changes: -DOXYCYCLINE HYCLATE 100MG TABLET PO ONE; -LIDOCAINE 1% MDV 20ML VIAL SQ PRN; -LR 1,000 ML IV ONE
[2021-04-11] MEDS ORDERED: CLAR10CA3 PO (16:05)
[2021-04-11] MEDS ORDERED: KETOROLAC 30 MG/ML 1ML VIAL IV ONE (17:30)
[2021-04-11] MEDS ORDERED: ONDANSETRON 4MG/2ML VIAL IV ONE (17:30)
[2021-04-11 17:57] LABS: BASO # 0.1 10^3/uL (0.0-0.2); BASO % 0.8 % (0.0-1.0); EOS # 0.5 10^3/uL (0.0-0.5); EOS % 5.9 % (0.0-3.0); HEMATOCRIT 47.4 % (36.0-47.0); LYMPH # 2.4 10^3/uL (1.5-5.0); LYMPH % 29.8 % (24.0-44.0); MEAN CORPUSCULAR HEMOGLOBIN 31.5 pg (27.0-33.0); MEAN CORPUSCULAR HGB CONC 33.8 g/dl (32.0-36.5); MEAN CORPUSCULAR VOLUME 93.3 fl (80.0-96.0); MONO # 0.4 10^3/uL (0.0-0.8); MONO % 4.9 % (2.0-8.0); NEUTROPHILS # 4.6 10^3/uL (1.5-8.5); NEUTROPHILS % 58.3 % (36.0-66.0); PLATELET COUNT, AUTOMATED 306 10^3/uL (150-450); RED BLOOD COUNT 5.08 10^6/uL (4.00-5.40); WHITE BLOOD COUNT 7.9 10^3/uL (4.0-10.0)
[2021-04-11 18:20] LABS: BLOOD UREA NITROGEN 10 MG/DL (7-18); CALCIUM LEVEL 9.8 MG/DL (8.5-10.1); CARBON DIOXIDE LEVEL 31 MEQ/L (21-32); CHLORIDE LEVEL 104 MEQ/L (98-107); CREATININE FOR GFR 0.71 MG/DL (0.55-1.30); GLOMERULAR FILTRATION RATE > 60.0 (>60); GLUCOSE, FASTING 103 MG/DL (70-100); POTASSIUM SERUM 4.2 MEQ/L (3.5-5.1); SODIUM LEVEL 140 MEQ/L (136-145)
--- NOTE | 2021-04-11 19:12 | REP ---
INDICATION: vag bleeding, severe back pain, early cycle. COMPARISON: None. TECHNIQUE: 2D Doppler ultrasound of the pelvis was obtained both transabdominally and transvaginally in multiple projections and supplemented by color Doppler. FINDINGS: The anteverted uterus measures 5.9 x 4.9 x 3.4 cm. The endometrium measures 4 mm in thickness. The right ovary measures 3.3 x 3.1 x 1.7 cm in the left ovary measures 2.8 x 1.7 x 1.7 cm. There is no free fluid the pelvis. IMPRESSION: Normal nonobstetrical pelvic ultrasound. <Electronically signed by Ricky Vernon > 04/11/21 1833
[2021-04-11 19:42] VITALS: BP 142/85
== END 2021-04-11 19:52 | disposition home or self-care (01) ==
LOC: M ED 15:58
DX: N93.9 Abnormal uterine and vaginal bleeding, unspecified (principal); M54.5 Low back pain; E28.2 Polycystic ovarian syndrome
CPT/HCPCS: 76830; 76856; 80048; 81001; 84702; 85025; 86850; 86900; 86901; 93976; 96374; 99283; J1885; J2405

== ENCOUNTER 2021-12-03 22:32 | Outpatient (CLI) | payer OTHER ==
[~2021-12-03] VITALS: Ht 157.5 cm; Wt 74.3 kg
[~2021-12-03 22:32] MED LIST changes: -CEFD1CAP8 PO; +CEFD300C41 PO; +CLAR10CA3 PO
[2021-12-03 22:51] VITALS: BP 130/79
[2021-12-03] MEDS ORDERED: HOME MED LIST COMPLETE! XX SCH (23:15)
[2021-12-03 23:43] VITALS: BP 116/62
[2021-12-04 00:14] LABS: HEMATOCRIT 34.9 % (36.0-47.0); HEMOGLOBIN 11.8 g/dl (12.0-15.5); MEAN CORPUSCULAR HGB CONC 33.8 g/dl (32.0-36.5); MEAN CORPUSCULAR VOLUME 97.5 fl (80.0-96.0); PLATELET COUNT, AUTOMATED 276 10^3/uL (150-450); RED BLOOD COUNT 3.58 10^6/uL (4.00-5.40); WHITE BLOOD COUNT 8.5 10^3/uL (4.0-10.0)
[2021-12-04 00:29] LABS: INR 0.92; PROTHROMBIN TIME 12.8 SECONDS (12.7-14.5)
[2021-12-04 00:30] LABS: PARTIAL THROMBOPLASTIN TIME 27.8 SECONDS (25.9-37.0)
[2021-12-04 00:33] LABS: D-DIMER QUANT 559.38 ng/ml (<500)
[2021-12-04 00:38] VITALS: BP 98/54
[2021-12-04 00:51] VITALS: BP 98/55
== END 2021-12-04 01:50 | disposition home or self-care (01) ==
LOC: M LDO 22:32
PROVIDERS: ATTEND Obstetrics & Gynecology
DX: O9A.212 Injury, poisoning and certain other consequences of external causes complicating pregnancy, second trimester (principal); S30.0XXA Contusion of lower back and pelvis, initial encounter; X58.XXXA Exposure to other specified factors, initial encounter; Y92.9 Unspecified place or not applicable; O26.892 Other specified pregnancy related conditions, second trimester; N89.8 Other specified noninflammatory disorders of vagina; Z87.51 Personal history of pre-term labor; Z88.8 Allergy status to other drugs, medicaments and biological substances
CPT/HCPCS: 36415; 59025; 81001; 85027; 85379; 85384; 85610; 85730; G0378; G0463

== ENCOUNTER 2022-01-01 01:56 | Outpatient (CLI) | payer OTHER ==
[~2022-01-01] VITALS: Ht 157.5 cm; Wt 76.3 kg
[2022-01-01] MEDS ORDERED: HOME MED LIST COMPLETE! XX SCH (02:10)
[2022-01-01 02:17] VITALS: BP 128/72
[2022-01-01 03:52] VITALS: BP 111/60
== END 2022-01-01 04:53 | disposition home or self-care (01) ==
LOC: M LDO 01:56
PROVIDERS: ATTEND Obstetrics & Gynecology
DX: O32.1XX0 Maternal care for breech presentation, not applicable or unspecified (principal); Z3A.30 30 weeks gestation of pregnancy; O24.410 Gestational diabetes mellitus in pregnancy, diet controlled; O34.219 Maternal care for unspecified type scar from previous cesarean delivery; Z87.51 Personal history of pre-term labor; Z88.8 Allergy status to other drugs, medicaments and biological substances; O99.343 Other mental disorders complicating pregnancy, third trimester; F41.9 Anxiety disorder, unspecified
CPT/HCPCS: 59025; 76815; 76817; 82731; G0463

== ENCOUNTER 2022-02-03 20:28 | Outpatient (CLI) | payer OTHER ==
[~2022-02-03] VITALS: Ht 157.5 cm; Wt 76.4 kg
[2022-02-03 20:46] VITALS: BP 104/64
[2022-02-03 21:51] LABS: HEMOGLOBIN 12.8 g/dl (12.0-15.5); MEAN CORPUSCULAR HEMOGLOBIN 33.7 pg (27.0-33.0); MEAN CORPUSCULAR HGB CONC 34.6 g/dl (32.0-36.5); MEAN CORPUSCULAR VOLUME 97.4 fl (80.0-96.0); PLATELET COUNT, AUTOMATED 287 10^3/uL (150-450); WHITE BLOOD COUNT 7.6 10^3/uL (4.0-10.0)
[2022-02-03 22:15] LABS: ALBUMIN 3.1 GM/DL (3.2-5.2); ALT/SGPT 18 U/L (12-78); BILIRUBIN,TOTAL 0.3 MG/DL (0.2-1.0); BLOOD UREA NITROGEN 8 MG/DL (7-18); CALCIUM LEVEL 9.3 MG/DL (8.5-10.1); CARBON DIOXIDE LEVEL 28 MEQ/L (21-32); CHLORIDE LEVEL 105 MEQ/L (98-107); CREATININE FOR GFR 0.62 MG/DL (0.55-1.30); GLOMERULAR FILTRATION RATE > 60.0 (>60); GLUCOSE, FASTING 101 MG/DL (70-100); POTASSIUM SERUM 4.2 MEQ/L (3.5-5.1); SODIUM LEVEL 138 MEQ/L (136-145); TOTAL PROTEIN 6.2 GM/DL (6.4-8.2)
== END 2022-02-03 22:22 | disposition home or self-care (01) ==
LOC: M LDO 20:28
PROVIDERS: ATTEND Obstetrics & Gynecology
DX: O26.893 Other specified pregnancy related conditions, third trimester (principal); R30.0 Dysuria; Z3A.33 33 weeks gestation of pregnancy; O24.415 Gestational diabetes mellitus in pregnancy, controlled by oral hypoglycemic drugs; O99.343 Other mental disorders complicating pregnancy, third trimester; F41.9 Anxiety disorder, unspecified; O60.03 Preterm labor without delivery, third trimester; Z91.14 Patient's other noncompliance with medication regimen; Z88.8 Allergy status to other drugs, medicaments and biological substances
CPT/HCPCS: 36415; 59025; 80053; 81001; 83036; 85027; G0463

== ENCOUNTER 2022-02-04 23:38 | Outpatient (CLI) | payer OTHER ==
[~2022-02-04] VITALS: Ht 157.5 cm; Wt 75.3 kg
[2022-02-04 23:59] VITALS: BP 110/69
[2022-02-05] MEDS ORDERED: LR 1,000 ML IV ONE ×2 (00:40→02:10)
[2022-02-05 01:08] VITALS: BP 97/54
[2022-02-05 01:15] LABS: HEMATOCRIT 36.4 % (36.0-47.0); HEMOGLOBIN 12.6 g/dl (12.0-15.5); MEAN CORPUSCULAR HEMOGLOBIN 33.5 pg (27.0-33.0); MEAN CORPUSCULAR HGB CONC 34.6 g/dl (32.0-36.5); MEAN CORPUSCULAR VOLUME 96.8 fl (80.0-96.0); PLATELET COUNT, AUTOMATED 271 10^3/uL (150-450); RED BLOOD COUNT 3.76 10^6/uL (4.00-5.40); WHITE BLOOD COUNT 10.8 10^3/uL (4.0-10.0)
[2022-02-05 01:37] LABS: ALBUMIN 3.1 GM/DL (3.2-5.2); ALT/SGPT 16 U/L (12-78); BILIRUBIN,TOTAL 0.4 MG/DL (0.2-1.0); BLOOD UREA NITROGEN 5 MG/DL (7-18); CALCIUM LEVEL 9.1 MG/DL (8.5-10.1); CARBON DIOXIDE LEVEL 24 MEQ/L (21-32); CHLORIDE LEVEL 106 MEQ/L (98-107); CREATININE FOR GFR 0.49 MG/DL (0.55-1.30); GLOMERULAR FILTRATION RATE > 60.0 (>60); GLUCOSE, FASTING 113 MG/DL (70-100); POTASSIUM SERUM 3.6 MEQ/L (3.5-5.1); SODIUM LEVEL 138 MEQ/L (136-145); TOTAL PROTEIN 6.2 GM/DL (6.4-8.2)
[2022-02-05] MEDS ORDERED: FLUCONAZOLE 50MG TABLET PO ONE (02:00)
[2022-02-05] MEDS ORDERED: ONDANSETRON 4MG 2ML VIAL IV ONE (02:00)
[2022-02-05] MEDS ORDERED: GI COCKTAIL 50ML BTL(HYOSCYAMINE/MAALOX/LIDOCAINE VISCOUS)(1:3:1) PO ONE (05:00)
[2022-02-05 05:58] VITALS: BP 105/54
[2022-02-05] MEDS ORDERED: METOCLOPRAMIDE INJ 10MG/2ML VIAL (J2765 PER 1) IV ONE (06:00)
[2022-02-05 06:36] VITALS: BP 103/52
== END 2022-02-05 06:35 | disposition home or self-care (01) ==
LOC: M LDO 23:38
PROVIDERS: ATTEND Obstetrics & Gynecology
DX: O26.893 Other specified pregnancy related conditions, third trimester (principal); R25.2 Cramp and spasm; Z3A.33 33 weeks gestation of pregnancy; R11.0 Nausea; O24.410 Gestational diabetes mellitus in pregnancy, diet controlled; Z88.8 Allergy status to other drugs, medicaments and biological substances
CPT/HCPCS: 59025; 80053; 81001; 85027; 96361; 96374; G0463; J2405; J2765

== ENCOUNTER 2022-02-27 02:26 | Outpatient (CLI) | payer OTHER ==
[~2022-02-27] VITALS: Ht 157.5 cm; Wt 75.2 kg
[2022-02-27 02:44] VITALS: BP 119/68
[2022-02-27] MEDS ORDERED: PROB250C PO (02:46)
[2022-02-27 04:13] VITALS: BP 91/54
== END 2022-02-27 04:43 | disposition home or self-care (01) ==
LOC: M LDO 02:26
PROVIDERS: ATTEND Obstetrics & Gynecology
DX: O99.613 Diseases of the digestive system complicating pregnancy, third trimester (principal); K59.00 Constipation, unspecified; Z3A.36 36 weeks gestation of pregnancy; O34.219 Maternal care for unspecified type scar from previous cesarean delivery; Z88.8 Allergy status to other drugs, medicaments and biological substances
CPT/HCPCS: 59025; 76815; 81001; G0463

== ENCOUNTER 2022-03-08 00:53 | Outpatient (CLI) | payer OTHER ==
[~2022-03-08] VITALS: Ht 157.5 cm; Wt 74.1 kg
[~2022-03-08 00:53] MED LIST changes: +PROB250C PO
[2022-03-08] MEDS ORDERED: OXYM15SP2 (01:15)
[2022-03-08] MEDS ORDERED: HOME MED LIST COMPLETE! XX SCH (01:20)
[2022-03-08 01:21] VITALS: BP 117/73
[2022-03-08] MEDS ORDERED: LR 1,000 ML IV ONE (01:40)
== END 2022-03-08 02:56 | disposition home or self-care (01) ==
LOC: M LDO 00:53
PROVIDERS: ATTEND Obstetrics & Gynecology
DX: O47.1 False labor at or after 37 completed weeks of gestation (principal); Z3A.38 38 weeks gestation of pregnancy; O34.219 Maternal care for unspecified type scar from previous cesarean delivery; O24.415 Gestational diabetes mellitus in pregnancy, controlled by oral hypoglycemic drugs; O99.343 Other mental disorders complicating pregnancy, third trimester; F41.9 Anxiety disorder, unspecified; O99.513 Diseases of the respiratory system complicating pregnancy, third trimester; J06.9 Acute upper respiratory infection, unspecified; Z88.8 Allergy status to other drugs, medicaments and biological substances
CPT/HCPCS: 59025; G0378; G0463

== ENCOUNTER 2022-03-13 22:56 | Outpatient (CLI) | payer OTHER ==
[~2022-03-13] VITALS: Ht 157.5 cm; Wt 74.2 kg
[~2022-03-13 22:56] MED LIST changes: +OXYM15SP2
[2022-03-13 23:08] VITALS: BP 129/76
[2022-03-13] MEDS ORDERED: ZOLO25TA PO (23:30)
[2022-03-13] MEDS ORDERED: HOME MED LIST COMPLETE! XX SCH (23:40)
== END 2022-03-14 00:49 | disposition home or self-care (01) ==
LOC: M LDO 22:56
PROVIDERS: ATTEND Obstetrics & Gynecology
DX: O26.893 Other specified pregnancy related conditions, third trimester (principal); R10.2 Pelvic and perineal pain; Z3A.39 39 weeks gestation of pregnancy
CPT/HCPCS: 59025; G0463

== ENCOUNTER 2022-03-20 21:49 | Outpatient (CLI) | payer OTHER ==
[~2022-03-20] VITALS: Ht 157.5 cm; Wt 74.6 kg
[2022-03-20 22:02] VITALS: BP 122/76
[2022-03-20] MEDS ORDERED: HOME MED LIST COMPLETE! XX SCH (22:05)
== END 2022-03-20 22:50 | disposition home or self-care (01) ==
LOC: M LDO 21:49
PROVIDERS: ATTEND Obstetrics & Gynecology
DX: O47.1 False labor at or after 37 completed weeks of gestation (principal); Z3A.39 39 weeks gestation of pregnancy; O34.219 Maternal care for unspecified type scar from previous cesarean delivery; O24.410 Gestational diabetes mellitus in pregnancy, diet controlled; Z88.1 Allergy status to other antibiotic agents; Z88.8 Allergy status to other drugs, medicaments and biological substances
CPT/HCPCS: 59025; G0463

== ENCOUNTER 2022-03-22 02:10 | Inpatient (IN) | payer OTHER ==
[~2022-03-22] VITALS: Ht 157.5 cm; Wt 73.6 kg
[2022-03-22] VITALS (30 sets, daily range): BP systolic 104–184; BP diastolic 55–100
[2022-03-22] MEDS ORDERED: HOME MED LIST COMPLETE! XX SCH (02:50)
[2022-03-22] MEDS ORDERED: OXYTOCIN DRIP 30 UNITS in IV 1 EA IV PRN ×4 (03:20)
[2022-03-22] MEDS ORDERED: METHYLERGONOVINE MALEATE 0.2 MG/ML VIAL (J2210) IM PRN (03:20)
[2022-03-22] MEDS ORDERED: OXYTOCIN INJ 10 UNITS/ML VIAL (J2590) IV PRN (03:20)
[2022-03-22] MEDS ORDERED: TRANEXAMIC ACID INJection 1,000 MG in NS 100 ML IV PRN (03:20)
[2022-03-22] MEDS ORDERED: LR 1,000 ML IV SCH (03:20)
[2022-03-22] MEDS ORDERED: LACTATED RINGER'S 1000 ML IV ONE (03:20)
[2022-03-22 04:02] LABS: HEMATOCRIT 39.2 % (36.0-47.0); HEMOGLOBIN 13.1 g/dl (12.0-15.5); MEAN CORPUSCULAR HEMOGLOBIN 32.3 pg (27.0-33.0); MEAN CORPUSCULAR HGB CONC 33.4 g/dl (32.0-36.5); MEAN CORPUSCULAR VOLUME 96.6 fl (80.0-96.0); PLATELET COUNT, AUTOMATED 256 10^3/uL (150-450); RED BLOOD COUNT 4.06 10^6/uL (4.00-5.40); WHITE BLOOD COUNT 7.2 10^3/uL (4.0-10.0)
[2022-03-22] MEDS ORDERED: ACETAMINOPHEN 500 MG TAB PO ONE (04:55)
[2022-03-22] MEDS: LR 1,000 ML IV SCH ×2 (10:09→19:31)
[2022-03-22] MEDS: OXYTOCIN DRIP 30 UNITS in IV 1 EA IV SCH (10:10)
[2022-03-22] MEDS ORDERED: ONDANSETRON 4MG 2ML VIAL IV PRN (18:20)
[2022-03-22] MEDS ORDERED: ePHEDrine SULFATE 25 MG/5 ML(5MG/ML) SYRINGE IVP PRN (18:20)
[2022-03-22] MEDS ORDERED: NALOXONE INJ 0.4MG/1ML VIAL (J2310 PER 1MG) IV PRN (18:20)
[2022-03-22] MEDS ORDERED: LR 500 ML IV PRN (18:20)
[2022-03-22] MEDS ORDERED: EPIDURAL/PCA KEYS XX PRN (18:20)
[2022-03-22] MEDS ORDERED: diphenhydrAMINE 50MG/ML VIAL (J1200) IV PRN (18:20)
[2022-03-22] MEDS: FENTANYL/ROPIVACAINE/NACL BAG 100 ML EPIDURAL SCH (18:35)
[2022-03-23] VITALS (45 sets, daily range): BP systolic 97–157; BP diastolic 56–103
[2022-03-23] MEDS: FENTANYL/ROPIVACAINE/NACL BAG 100 ML EPIDURAL SCH ×3 (03:27→20:08)
[2022-03-23] MEDS ORDERED: ACETAMINOPHEN 500 MG TAB PO ONE (04:55)
[2022-03-23] MEDS ORDERED: diphenhydrAMINE 50MG/ML VIAL (J1200) IM ONE (08:40)
[2022-03-23] MEDS: OXYTOCIN DRIP 30 UNITS in IV 1 EA IV SCH ×3 (08:45→20:09)
[2022-03-23] MEDS ORDERED: diphenhydrAMINE 50MG/ML VIAL (J1200) IV ONE (09:20)
[2022-03-23] MEDS: LR 1,000 ML IV SCH (10:02)
[2022-03-23] MEDS ORDERED: LIDOCAINE PRES-FREE 2% 10ML AMP As Ordered ONE (16:30)
[2022-03-23] MEDS ORDERED: METHYLERGONOVINE MALEATE 0.2 MG/ML VIAL (J2210) IM PRN ×2 (17:20→20:20)
[2022-03-23] MEDS ORDERED: OXYTOCIN DRIP 30 UNITS in IV 1 EA IV PRN (17:20)
[2022-03-23] MEDS ORDERED: CARBOPROST TROMETHAMINE 250 MCG/ML AMP IM PRN (17:20)
[2022-03-23] MEDS ORDERED: LR 1,000 ML IV SCH (17:20)
[2022-03-23] MEDS ORDERED: LIDOCAINE 1% MDV 20ML VIAL INFIL PRN (17:20)
[2022-03-23] MEDS ORDERED: TRANEXAMIC ACID INJection 1,000 MG in NS 100 ML IV PRN (17:20)
[2022-03-23] MEDS ORDERED: KETOROLAC 60MG 2ML VIAL As Ordered ONE (17:43)
[2022-03-23] MEDS ORDERED: dexameTHASONE 4 MG/ML 1ML VIAL (J1100 PER 1MG) As Ordered ONE (17:43)
[2022-03-23] MEDS ORDERED: ONDANSETRON 4MG 2ML VIAL As Ordered ONE (17:43)
[2022-03-23] MEDS ORDERED: METOCLOPRAMIDE INJ 10MG/2ML VIAL (J2765 PER 1) As Ordered ONE (17:43)
[2022-03-23] MEDS ORDERED: CLINDAMYCIN 900 MG in IV 1 EA IV ONE (17:45)
[2022-03-23] MEDS ORDERED: BICITRA 30ML SOLN UDC As Ordered ONE (17:45)
[2022-03-23] MEDS ORDERED: ACETAMINOPHEN 1000MG 100ML IV BTL (OFIRMEV) (J0131 PER 10MG) As Ordered ONE (17:47)
[2022-03-23] MEDS ORDERED: OXYTOCIN 30 UNITS IN 0.9% NaCl 500ML IV BAG (J2590) As Ordered ONE ×2 (17:48→20:03)
[2022-03-23] MEDS ORDERED: BICITRA 30ML SOLN UDC PO ONE (17:50)
[2022-03-23] MEDS ORDERED: BUPIVACAINE HCL 0.25% 10ML VIAL As Ordered ONE (18:13)
[2022-03-23] MEDS ORDERED: MIDAZOLAM INJ 2MG/2ML VIAL (J2250 PER 1MG) As Ordered ONE (18:20)
[2022-03-23] MEDS ORDERED: MORPHINE PRES-FREE INJ 10 MG/10 ML VIAL As Ordered ONE (18:25)
[2022-03-23] MEDS ORDERED: fentaNYL 100 MCG/2 ML INJECTION As Ordered ONE (18:32)
[2022-03-23] MEDS ORDERED: PHENYLephrine 500MCG 5ML (100MCG/ML) SYRINGE As Ordered ONE (18:36)
[2022-03-23] MEDS ORDERED: KETAMINE HCL 200 MG/20 ML VIAL As Ordered ONE (18:40)
[2022-03-23] MEDS ORDERED: AZITHROMYCIN INJ 500 MG, VIAL MATE ADAPTER 1 EACH in NS 250 ML IV ONE (18:45)
[2022-03-23] MEDS ORDERED: BUPIVACAINE HCL 0.25% 10ML VIAL SC ONE (18:50)
[2022-03-23] MEDS ORDERED: GENTAMICIN 370 MG in D5W 100 ML IV ONE (19:00)
[2022-03-23] MEDS ORDERED: SIMETHICONE 80MG CHEW TAB PO PRN (20:20)
[2022-03-23] MEDS ORDERED: ACETAMINOPHEN TAB 650MG DOSE (2X325MG) PO PRN (20:20)
[2022-03-23] MEDS ORDERED: ANUSOL HC CREAM 30GM TOP PRN (20:20)
[2022-03-23] MEDS ORDERED: ONDANSETRON 4MG TAB PO PRN (20:20)
[2022-03-23] MEDS: DOCUSATE SODIUM 100MG CAPSULE PO SCH (21:23)
[2022-03-24] VITALS (8 sets, daily range): BP systolic 112–123; BP diastolic 68–83
[2022-03-24] MEDS: KETOROLAC 30 MG/ML 1ML VIAL IV SCH ×3 (00:07→11:35)
[2022-03-24 06:40] LABS: HEMATOCRIT 30.9 % (36.0-47.0); HEMOGLOBIN 10.1 g/dl (12.0-15.5); MEAN CORPUSCULAR HEMOGLOBIN 32.8 pg (27.0-33.0); MEAN CORPUSCULAR HGB CONC 32.7 g/dl (32.0-36.5); MEAN CORPUSCULAR VOLUME 100.3 fl (80.0-96.0); PLATELET COUNT, AUTOMATED 203 10^3/uL (150-450); RED BLOOD COUNT 3.08 10^6/uL (4.00-5.40); WHITE BLOOD COUNT 10.5 10^3/uL (4.0-10.0)
[2022-03-24] MEDS: SERTRALINE HCL 25 MG TABLET PO SCH (09:29)
[2022-03-24] MEDS: DOCUSATE SODIUM 100MG CAPSULE PO SCH ×2 (09:29→21:02)
[2022-03-24] MEDS: PRENATAL VITAMINS CHEWABLE TABLET PO SCH (09:29)
[2022-03-24] MEDS: FERROUS SULFATE 325MG TAB PO SCH (09:29)
[2022-03-24] MEDS: ENOXAPARIN 40MG/0.4ML SYRINGE (J1650 PER 10MG) SC SCH (09:30)
[2022-03-24] MEDS: ACETAMINOPHEN 500 MG TAB PO PRN ×2 (09:44→15:49)
[2022-03-24] MEDS: oxyCODONE 5MG TAB PO PRN (15:49)
[2022-03-24] MEDS: IBUPROFEN 800 MG TAB PO SCH (19:48)
[2022-03-24] MEDS ORDERED: IBUPROFEN 600MG TAB PO PRN (20:20)
[2022-03-24] MEDS ORDERED: IBUPROFEN 800 MG TAB PO PRN (20:20)
[2022-03-25] MEDS: ACETAMINOPHEN 500 MG TAB PO PRN
[2022-03-25 02:00] VITALS: BP 119/74
[2022-03-25] MEDS: oxyCODONE 5MG TAB PO PRN (03:18)
[2022-03-25] MEDS: IBUPROFEN 800 MG TAB PO SCH (03:55)
[2022-03-25 06:00] VITALS: BP 127/83
[2022-03-25] MEDS ORDERED: PRENCHW PO (06:41)
[2022-03-25] MEDS ORDERED: COLA100C5 PO (06:41)
[2022-03-25] MEDS ORDERED: OXYC-517 PO (06:41)
[2022-03-25] MEDS ORDERED: IBUP-1022 PO (06:41)
[2022-03-25] MEDS: PRENATAL VITAMINS CHEWABLE TABLET PO SCH (08:37)
[2022-03-25] MEDS: FERROUS SULFATE 325MG TAB PO SCH (08:37)
[2022-03-25] MEDS: SERTRALINE HCL 25 MG TABLET PO SCH (08:37)
[2022-03-25] MEDS: DOCUSATE SODIUM 100MG CAPSULE PO SCH (08:37)
[2022-03-25] MEDS: ENOXAPARIN 40MG/0.4ML SYRINGE (J1650 PER 10MG) SC SCH (08:38)
[2022-03-25] MEDS ORDERED: MEASLES,MUMPS,RUBELLA VACCINE INJ (MMR-II) (90707) SC.IMMUN ONE (09:00)
== END 2022-03-25 12:30 | disposition home or self-care (01) | DRG 773 ==
LOC: M LDO 02:10 → M LDI 03:27 → M OBS 03-23 20:48
PROVIDERS: ADMIT Obstetrics & Gynecology; ATTEND Obstetrics & Gynecology
PROC: 10D00Z1 Extraction of Products of Conception, Low, Open Approach (ICD-10-PCS; principal; 2022-03-23 18:29)
DX: O48.0 Post-term pregnancy (principal); Z37.0 Single live birth; Z3A.40 40 weeks gestation of pregnancy; Z88.8 Allergy status to other drugs, medicaments and biological substances; O77.0 Labor and delivery complicated by meconium in amniotic fluid; O34.211 Maternal care for low transverse scar from previous cesarean delivery; O24.429 Gestational diabetes mellitus in childbirth, unspecified control; O66.41 Failed attempted vaginal birth after previous cesarean delivery

== ENCOUNTER → 2022-10-16 | Outpatient (CLI) | payer OTHER ==
[~2022-10-16] MED LIST changes: +COLA100C5 PO; +IBUP-1022 PO; +OXYC-517 PO; +PRENCHW PO
== END ==
LOC: M PLAIMG 12:59
PROVIDERS: ATTEND Otolaryngology
DX: J32.0 Chronic maxillary sinusitis (principal)

== ENCOUNTER → 2023-01-31 | Outpatient (REF) | payer OTHER | LOC: M LAB REF 16:08 | PROVIDERS: ATTEND Physician Assistant Medical | DX: B34.9 Viral infection, unspecified (principal) ==